=== PATIENT | male | born 1975 | race Caucasian/White ===

== ENCOUNTER 2016-10-26 10:50 | Emergency (ER) | payer SELFPAY ==
[~2016-10-26] VITALS: Ht 185.4 cm; Wt 87.1 kg
[2016-10-26 10:55] VITALS: TEMP 36.9; O2SAT 99; Ht 185.4 cm; Wt 87.1 kg
[2016-10-26] MEDS ORDERED: SODIUM CHLORIDE 0.9% 1000ML 1,000 ML IV STA (11:24)
[2016-10-26] MEDS ORDERED: ALBUT/IPRATROP 3MG/0.5MG NEB 3 ML VIAL INH STA (11:24)
[2016-10-26 12:02] LABS: BASO % 0.3 %; BASO ABS # 0.02 K/uL (0-0.2); COMPLETE YES; EOS % 2.7 %; HEMATOCRIT 46.5 % (42-52); IG% 0.2 %; LYMPH ABS # 1.05 K/uL (1.2-3.4); MEAN CELL VOLUME 93.8 fL (80-100); MEAN CORPUSCULAR HEMOGLOBIN 31.7 pg (25-34); MEAN CORPUSCULAR HGB CONC 33.8 g/dl (32-36); MEAN PLATELET VOLUME 9.5 fL (7.4-10.4); NEUT % 68.8 %; PLATELET COUNT 296 K/uL (130-400); RED BLOOD COUNT 4.96 M/uL (4.7-6.1); WHITE BLOOD COUNT 6.19 K/uL (4.8-10.8)
--- NOTE | 2016-10-26 12:04 | DIAGNOSTIC IMAGING REPORT ---
CHEST 2 VIEWS ROUTINE HISTORY: 41 years-old Male CHEST PAIN COMPARISON: Chest and rib radiographs 08/26/2015. TECHNIQUE: Frontal and lateral views of the chest FINDINGS: Cardiomediastinal and hilar silhouettes are within normal limits. No pneumothorax, pleural effusion or focal airspace consolidation. The bones are grossly intact. There is an apparent fragment osteophyte near the right AC joint. Mild subcortical cystic changes are seen within the left glenohumeral joint, unchanged. IMPRESSION: No acute cardiopulmonary process. The above report was generated using voice recognition software. It may contain grammatical, syntax or spelling errors. Electronically signed by: Jordon Aggarwal M.D. 10/26/2016 12:02 PM Dictated Date/Time: 10/26/2016 12:01 PM
[2016-10-26 12:26] LABS: ALT/SGPT 70 U/L (12-78); BLOOD UREA NITROGEN 14 mg/dl (7-18); BUN/CREATININE RATIO 15.4 (10-20); CARBON DIOXIDE 24 mmol/L (21-32); CHLORIDE 106 mmol/L (98-107); GLUCOSE 95 mg/dl (70-99); SODIUM 137 mmol/L (136-145)
[2016-10-26 12:30] LABS: ALKALINE PHOSPHATASE 107 U/L (45-117)
[2016-10-26 12:58] LABS: POTASSIUM 4.1 mmol/L (3.5-5.1)
[2016-10-26 13:03] LABS: MAGNESIUM 2.3 mg/dl (1.8-2.4)
[2016-10-26 13:37] LABS: URINE APPEARANCE CLOUDY (CLEAR); URINE COLOR YELLOW; URINE SPECIFIC GRAVITY 1.021 (1.000-1.030)
[2016-10-26 13:38] LABS: URINE BILIRUBIN NEG (NEG); URINE EPITHELIAL CELL AUTO 0-5 /lpf (0-5); URINE NITRITE NEG (NEG); UROBILINOGEN NEG (NEG)
[2016-10-26] MEDS ORDERED: VNTHFA/IN INH (13:56)
[2016-10-26 14:04] LABS: MANUAL MICROSCOPIC REQUIRED? NO; REVIEW REQ? NO; SULFASALICYLIC ACID NEG (NEG)
[2016-10-26 14:11] VITALS: BP 156/93; PULSE 76; O2SAT 97
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
== END 2016-10-26 14:14 | disposition home or self-care (01) ==
LOC: EDBD 10:50 → C.EDB 10:51
DX: J40 Bronchitis, not specified as acute or chronic (principal); I10 Essential (primary) hypertension; Z72.0 Tobacco use

== ENCOUNTER 2017-04-25 18:08 | Emergency (ER) | payer SELFPAY ==
[~2017-04-25] VITALS: Ht 185.4 cm; Wt 85.9 kg
[2017-04-25 18:14] VITALS: BP 154/89; PULSE 111; TEMP 36.7; O2SAT 98; Ht 185.4 cm; Wt 85.9 kg
[2017-04-25] MEDS ORDERED: AMOXICILLIN 250 MG CAP PO STA (18:26)
[2017-04-25] MEDS ORDERED: OXYCODONE HCL IR 5 MG TAB (IMMEDIATE RELEASE) PO STA (18:26)
[2017-04-25] MEDS ORDERED: OXYC1TAB3 PO (18:29)
[2017-04-25] MEDS ORDERED: AMOX500C3 PO (18:29)
--- NOTE | 2017-04-25 20:06 | EMERGENCY ROOM VISIT NOTE ---
History First contact with patient: 18:17 Chief Complaint: EAR PAIN Stated Complaint: CANT HEAR IN L EAR-HURTS BADYLY History of Present Illness The patient is a 42 year old male who presents to the Emergency Room with complaints of significant and progressively worsening left ear pain. The patient reports that he has had discomfort for the past few days. He initially reported that it felt like he was underwater with difficulty hearing. When he coughs or sneezes, he reports the pain is significantly worsened. The patient has had runny nose, congestion and cough over the past week. The patient denies any drainage from the year, and rates his discomfort an 8 out of 10. Review of Systems 10 system review was performed and was negative except for pertinent positives and negatives as indicated in history of present illness Past Medical/Surgical History Medical Problems: (1) HTN (hypertension) Medical Problems: (1) Disloc Shoulder Nos-Clos (2) HTN (hypertension) (3) Tobacco Use Surgical Problems: (1) History of shoulder surgery Family History FH: lung disease FHx: cancer Hypertension Social History Smoking Status: Current Every Day Smoker Alcohol Use: occasionally Drug Use: none Marital Status: Housing Status: lives with significant other Occupation Status: employed Current/Historical Medications Scheduled Amoxicillin (Amoxil), 500 MG PO TID Scheduled PRN Oxycodone Ir (Roxicodone Ir), 1-2 TAB PO Q4H PRN for Pain Physical Exam Vital Signs Date Time Temp Pulse Resp B/P (MAP) Pulse Ox O2 Delivery O2 Flow Rate FiO2 04/25/17 18:14 36.7 111 18 154/89 98 Room Air Physical Exam CONSTITUTIONAL: Healthy and well nourished. Alert and oriented X 3 with positive affect. Patient appears in moderate discomfort from pain. HEENT: Normocephalic, atraumatic. Pupils equal, round and reactive. Examination of the right ear shows TM bulging without erythema. Bony landmarks and light reflex are visible. Examination of left ear shows significant TM erythema without visibility of the bony landmarks or cone of light. No perforation noted. OROPHARYNX: No postnasal drip or tonsillar hypertrophy. NECK: Full active range of motion without discomfort. RESPIRATORY: Clear to auscultation bilaterally with no wheezing, crackles, rhonchi or stridor. CARDIOVASCULAR: Regular rate and rhythm with no murmurs, rubs or gallops. INTEGUMENTARY: No rash or other significant dermatologic conditions noted. Medical Decision & Procedures Medications Administered Medications (Trade) Dose Ordered Sig/Stacey Route Start Time Stop Time Status Last Admin Dose Admin Amoxicillin (Amoxil Cap) 500 mg NOW STAT PO 04/25/17 18:26 04/25/17 18:27 DC 04/25/17 18:37 500 MG Oxycodone HCl (Roxicodone Immediate Rel Tab) 5 mg NOW STAT PO 04/25/17 18:26 04/25/17 18:27 DC 04/25/17 18:36 5 MG ED Course Patient history and physical exam were performed. Nurse's notes were reviewed. Vital signs were reviewed. Pulse rate is 111. The patient is afebrile. Blood pressure is elevated at 154/89. Examination is consistent with otitis media. The patient reports that he does not have a family doctor or insurance. The patient will be provided prescriptions for amoxicillin and OxyIR 5 mg. He was encouraged to alternate ibuprofen and Tylenol for baseline pain relief. The patient was advised that he should start to notice relief within the next 48 hours. He was instructed to return to the emergency department if symptoms progress or worsen, or if he develops any drainage from the ear. I did encourage him to find a local family doctor as needed with any persistent symptoms. The patient was also advised that his blood pressure was elevated in the emergency department, and recommendations for PCP follow-up for blood pressure recheck were provided. The patient voiced understanding of all discharge instructions, and rated his pain a 6 out of 10 at the conclusion of my exam. The patient was administered amoxicillin 500 mg and OxyIR 5 mg just prior to discharge. Medical Decision [place] Drug Monitoring Program Search Results: patient reviewed within database, no issues identified Medication Reconcilliation Current Medication List: was personally reviewed by oh Blood Pressure Screening Patient's blood pressure: Elevated blood pressure Blood pressure disposition: Referred to PCP Impression Primary Impression: Left otitis media Additional Impression: Elevated blood pressure reading Departure Information Dispostion Home / Self-Care Condition FAIR Prescriptions Oxycodone Ir (Roxicodone Ir) 5 Mg Tab 1-2 TAB PO Q4H Y for Pain, #15 TAB For Initial Treatment Prov: Diallo Echols PA 04/25/17 Amoxicillin (AMOXIL) 500 Mg Cap 500 MG PO TID for 10 Days, #30 CAP Prov: Diallo Echols PA 04/25/17 Forms WORK / SCHOOL INSTRUCTIONS, HOME CARE DOCUMENTATION FORM, IMPORTANT VISIT INFORMATION Patient Instructions My [facility], ED Otitis Media Acute Adult Additional Instructions Complete all amoxicillin antibiotics as prescribed. Ibuprofen 800 mg and/or Tylenol 1000 mg every 8 hours. You may also alternate these medications for more effective pain relief: Ibuprofen --4 HRS--> Tylenol --4 HRS--> ibuprofen --4 HRS--> Tylenol .... OxyIR if needed for worse pain. Do not drink alcohol or drive while taking OxyIR. Return to the emergency department for any progressively worsening pain, developing fever or drainage from the ear. Suggest finding a local family doctor for further reevaluation of your blood pressure, which was elevated at 154/89 in the emergency department. Problem Qualifiers Primary Impression: Left otitis media Otitis media type: suppurative Chronicity: acute Recurrence: not specified as recurrent Spontaneous tympanic membrane rupture: without spontaneous rupture Qualified Codes: H66.002 - Acute suppurative otitis media without spontaneous rupture of ear drum, left ear
== END 2017-04-25 18:41 | disposition home or self-care (01) ==
LOC: C.EDB 18:09 → C.EDD 18:41
DX: H66.002 Acute suppurative otitis media without spontaneous rupture of ear drum, left ear (principal); I10 Essential (primary) hypertension; F17.210 Nicotine dependence, cigarettes, uncomplicated; Z80.9 Family history of malignant neoplasm, unspecified; Z82.49 Family history of ischemic heart disease and other diseases of the circulatory system

== ENCOUNTER 2017-05-10 17:42 | Emergency (ER) | payer SELFPAY ==
[~2017-05-10] VITALS: Ht 185.4 cm; Wt 87.2 kg
[~2017-05-10 17:42] MED LIST: OXYC1TAB3 PO
[2017-05-10 17:50] VITALS: TEMP 36.8; Ht 185.4 cm; Wt 87.2 kg
--- NOTE | 2017-05-10 18:47 | DIAGNOSTIC IMAGING REPORT ---
RIGHT HAND 3 VIEWS CLINICAL HISTORY: Right hand injury. FINDINGS: 3 views of the right hand are obtained. No prior studies are available for comparison at the time of dictation. The skeletal structures are well mineralized. There is an angulated fracture involving the distal shaft of the fifth metacarpal with overlying soft tissue edema. No additional fracture is seen. The joint spaces of the hand are well-maintained. IMPRESSION: Angulated boxer's fracture of the fifth metacarpal as above. Electronically signed by: Aaron Miller M.D. 05/10/2017 6:45 PM Dictated Date/Time: 05/10/2017 6:44 PM
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
[2017-05-10] MEDS ORDERED: NORCO 5/325MG HOME PACK ONE (19:14)
[2017-05-10] MEDS ORDERED: NORCO 5/325MG HOME PACK PO ONE (19:15)
[2017-05-10] MEDS ORDERED: HYDR-5688 PO (19:16)
[2017-05-10 19:17] VITALS: BP 123/87; PULSE 111; O2SAT 96
== END 2017-05-10 19:18 | disposition home or self-care (01) ==
LOC: C.EDB 17:43 → C.EDD 19:18
DX: S62.326A Displaced fracture of shaft of fifth metacarpal bone, right hand, initial encounter for closed fracture (principal); W22.8XXA Striking against or struck by other objects, initial encounter; I10 Essential (primary) hypertension; F17.200 Nicotine dependence, unspecified, uncomplicated; Z80.1 Family history of malignant neoplasm of trachea, bronchus and lung; Z82.49 Family history of ischemic heart disease and other diseases of the circulatory system